=== PATIENT | female | born 1990 | race Caucasian/White ===

== ENCOUNTER 2017-01-26 18:58 | Emergency (ER) | payer OTHER ==
[~2017-01-26] VITALS: Ht 170.2 cm; Wt 99.5 kg
[2017-01-26 19:07] VITALS: BP 145/84
== END 2017-01-26 20:28 | disposition left against medical advice (07) ==
LOC: ED 18:58
DX: Z53.21 Procedure and treatment not carried out due to patient leaving prior to being seen by health care provider (principal)